=== PATIENT | female | born 1955 | race Caucasian/White ===

== ENCOUNTER 2016-06-11 21:25 | Inpatient (IN) | payer OTHER ==
[~2016-06-11] VITALS: Ht 154.9 cm; Wt 68.9 kg
[2016-06-11 22:30] LABS: HEMOGLOBIN 12.6 gm/dl (12.3-15.3); RED BLOOD COUNT 3.64 M/UL (4.00-5.10); WHITE BLOOD COUNT 22.3 K/UL (4.5-11.0)
[2016-06-12] MEDS ORDERED: LIPITOR TAB 2020 MG PO (07:12)
[2016-06-12] MEDS ORDERED: ISOSORBIDE MON120 MG PO (07:14)
[2016-06-12] MEDS ORDERED: PAROXETINE HCL10 MG PO (07:15)
[2016-06-12] MEDS ORDERED: PROPRANOLOL HCL80 MG PO (07:16)
[2016-06-12] MEDS ORDERED: ZOLPIDEM TARTRA10 MG PO (07:17)
[2016-06-12] MEDS ORDERED: CILOSTAZOL100 MG PO (07:17)
[2016-06-12] MEDS ORDERED: VALIUM 2 MG TAB2 MG PO (07:18)
[2016-06-12] MEDS ORDERED: PRIMIDONE250 MG PO (07:19)
[2016-06-12] MEDS ORDERED: AMLODIPINE BESY10 MG PO (07:19)
[2016-06-12] MEDS ORDERED: MELOXICAM7.5 MG PO (07:20)
[2016-06-12] MEDS ORDERED: NEURONTIN 300300 MG PO (07:21)
[2016-06-12] MEDS ORDERED: LOSARTAN POTAS100 MG PO (07:22)
[2016-06-12 08:02] LABS: HEMOGLOBIN 10.7 gm/dl (12.3-15.3); WHITE BLOOD COUNT 22.8 K/UL (4.5-11.0)
[2016-06-12] MEDS ORDERED: PLAVIX75 MG PO (08:04)
[2016-06-12 08:18] LABS: RED BLOOD COUNT 3.12 M/UL (4.00-5.10)
[2016-06-12 08:27] LABS: BUN/CREATININE RATIO 20 (0-10)
[2016-06-13 03:43] LABS: HEMOGLOBIN 10.6 gm/dl (12.3-15.3); RED BLOOD COUNT 3.12 M/UL (4.00-5.10); WHITE BLOOD COUNT 18.2 K/UL (4.5-11.0)
[2016-06-13 04:01] LABS: BUN/CREATININE RATIO 12 (0-10)
[2016-06-14 04:01] LABS: HEMOGLOBIN 10.4 gm/dl (12.3-15.3); RED BLOOD COUNT 3.04 M/UL (4.00-5.10)
[2016-06-14 04:04] LABS: WHITE BLOOD COUNT 13.1 K/UL (4.5-11.0)
[2016-06-14 04:15] LABS: BUN/CREATININE RATIO 6 (0-10)
[2016-06-15 04:02] LABS: HEMOGLOBIN 10.7 gm/dl (12.3-15.3); RED BLOOD COUNT 3.14 M/UL (4.00-5.10); WHITE BLOOD COUNT 12.4 K/UL (4.5-11.0)
[2016-06-15 04:03] LABS: BUN/CREATININE RATIO 13 (0-10)
[2016-06-16 03:56] LABS: HEMOGLOBIN 10.3 gm/dl (12.3-15.3); WHITE BLOOD COUNT 10.3 K/UL (4.5-11.0)
[2016-06-16 04:18] LABS: BUN/CREATININE RATIO 15 (0-10)
[2016-06-17 06:25] LABS: BUN/CREATININE RATIO 12 (0-10)
[2016-06-17 06:32] LABS: HEMOGLOBIN 10.3 gm/dl (12.3-15.3); RED BLOOD COUNT 3.03 M/UL (4.00-5.10)
[2016-06-17] MEDS ORDERED: LACTINEX PACKET1 PKT PO (19:05)
[2016-06-17] MEDS ORDERED: VANCOCIN 125MG/2.5ML PO (19:06)
[2016-06-17] MEDS ORDERED: TYLENOL 325MG325 MG PO (19:07)
== END 2016-06-17 19:32 | disposition home or self-care (01) | DRG 371 ==
LOC: ER1 21:25 → ZEROF 06-12 02:58 → CCU 06-12 02:58 → ZEROF 06-12 02:58 → CCU 06-12 07:21 → M/S 06-16 14:22
PROVIDERS: Emergency Medicine; Internal Medicine Infectious Disease; ADMIT Internal Medicine
DX: A04.7 Enterocolitis due to Clostridium difficile (principal); R57.1 Hypovolemic shock; N17.9 Acute kidney failure, unspecified; D72.829 Elevated white blood cell count, unspecified; E87.6 Hypokalemia; I25.10 Atherosclerotic heart disease of native coronary artery without angina pectoris; E78.5 Hyperlipidemia, unspecified; Z86.73 Personal history of transient ischemic attack (TIA), and cerebral infarction without residual deficits; I10 Essential (primary) hypertension; G25.0 Essential tremor; R53.1 Weakness; R42 Dizziness and giddiness; K57.90 Diverticulosis of intestine, part unspecified, without perforation or abscess without bleeding; Z91.81 History of falling; Z95.1 Presence of aortocoronary bypass graft; F17.210 Nicotine dependence, cigarettes, uncomplicated; Z90.49 Acquired absence of other specified parts of digestive tract; Z98.890 Other specified postprocedural states; Z79.899 Other long term (current) drug therapy; Z79.1 Long term (current) use of non-steroidal anti-inflammatories (NSAID); Z79.02 Long term (current) use of antithrombotics/antiplatelets; Z82.49 Family history of ischemic heart disease and other diseases of the circulatory system; I27.2 Other secondary pulmonary hypertension
CPT/HCPCS: 36415; 70450; 71010; 72125; 74000; 80048; 80053; 82550; 82553; 82962; 83605; 83690; 83735; 83880; 84484; 85025; 85027; 85610; 85730; 87040; 87045; 87046; 89055; 93005; 96361; 96374; 99285; J2270; J2550; J3370; J7050; J7120